=== PATIENT | female | born 1950 | race Caucasian/White ===

== ENCOUNTER 2022-09-06 14:19 | Emergency (ER) | payer OTHER, BC, MEDICARE | END 2022-09-06 15:24 | disposition home or self-care (01) | LOC: NAV ERS 14:19 | DX: S52.512A Displaced fracture of left radial styloid process, initial encounter for closed fracture (principal); V48.0XXA Car driver injured in noncollision transport accident in nontraffic accident, initial encounter; W22.11XA Striking against or struck by driver side automobile airbag, initial encounter; Z79.899 Other long term (current) drug therapy ==

== ENCOUNTER 2023-02-23 16:57 | Emergency (ER) | payer MEDICARE, BC ==
[2023-02-23] MEDS ORDERED: Ondansetron PF 4 MG/2 ML Vial ONE (17:36)
[2023-02-23] MEDS ORDERED: Sodium Chloride 0.9% 1,000 ML ONE (17:36)
[2023-02-23] MEDS ORDERED: Famotidine/PF 20 mg/2ml Vial ONE (17:36)
[2023-02-23 17:45] LABS: #Basophils 0.1 thou/uL (0.0-0.2); #Eosinphils 0.2 thou/uL (0.0-0.7); #Lymphocytes 2.6 thou/uL (1.20-3.40); #Monocytes 1.2 thou/uL (0.11-0.59); #Neutrophils 5.4 thou/uL (1.40-6.50); %Basophils 0.9 % (0.0-1.0); %Eosinophils 2.4 % (0.0-10.0); %Lymphocytes 27.5 % (21.0-51.0); %Monocytes 12.8 % (0.0-10.0); %Neutrophils 56.4 % (42.0-75.0); Hemoglobin 14.9 g/dL (12.0-16.0); Mean Corpuscular HGB CONC 34.2 g/dL (32.0-36.0); Mean Corpuscular Hemoglobin 29.2 pg (27.0-31.0); Mean Corpuscular Volume 85.3 fl (78.0-98.0); Mean Platelet Volume 9.2 fL (7.4-10.4); Platelet Count 235 10x3/uL (130-400); RBC Distribution Width 10.6 % (11.5-14.5); Red Blood Cell (RBC) Count 5.11 mill/uL (4.20-5.40); White Blood Cell (WBC) Count 9.5 10x3/uL (4.8-10.8)
[2023-02-23 18:09] LABS: ALT (SGPT) 36 U/L (8-55); AST (SGOT) 49 U/L (5-34); Albumin 4.5 g/dL (3.4-4.8); Alkaline Phosphatase 89 U/L (40-110); Anion Gap 28 mmol/L (10-20); BUN (Urea Nitrogen) 29 mg/dL (9.8-20.1); Bilirubin, Total 0.8 mg/dL (0.2-1.2); Calc. Creatinine Clearance 0 mL/min (70-130); Calcium 10.8 mg/dL (7.8-10.44); Carbon Dioxide 22 mmol/L (23-31); Chloride 87 mmol/L (98-107); Estimated GFR 60; Globulin 2.6 g/dL (2.4-3.5); Glucose 86 mg/dL (83-110); Lipase 9 U/L (8-78); Potassium 3.1 mmol/L (3.5-5.1); Protein, Total 7.1 g/dL (5.8-8.1); Sodium 134 mmol/L (136-145)
[2023-02-23] MEDS ORDERED: Potassium Chloride 20 MEQ TAB ONE (18:47)
[2023-02-23 18:51] LABS: Bilirubin Moderate (Negative); Blood, Urine Small (Negative); Clarity Clear (Clear); Glucose, Urine (Dipstick) Negative (Negative); Ketone, Urine > or equal to 80 mg/dL (Negative); Leukocyte Small (Negative); Nitrite Negative (Negative); Protein, Urine (Dipstick) 100 mg/dL (Neg-Trace); Specific Gravity, Urine 1.015 (1.005-1.030); Urobilinogen 0.2 mg/dL (Less than 2)
[2023-02-23 18:53] LABS: CAUTI Indications for Culture Pelvic or flank pain; RBC/HPF 0-3 HPF (0-3); Squamous Epithelial 0-3 HPF (0-3); Transitional Epithelial 0-3 HPF (None Seen)
[2023-02-23 18:55] LABS: Urine Culture Reflex No No
== END 2023-02-23 19:36 | disposition home or self-care (01) ==
LOC: NAV ERS 16:57
DX: K29.00 Acute gastritis without bleeding (principal); I10 Essential (primary) hypertension; E78.5 Hyperlipidemia, unspecified; Z87.891 Personal history of nicotine dependence; Z79.899 Other long term (current) drug therapy
CPT/HCPCS: 36415; 80053; 81001; 83690; 84484; 85025; 87086; 96361; 96374; 96375; J2405; J7050; S0028